=== PATIENT | female | born 2000 | race American Indian/Alaskan Native ===

== ENCOUNTER 2021-03-13 22:30 | Emergency (ER) | payer SELFPAY ==
[2021-03-14 00:09] VITALS: BP 122/64
[2021-03-14 01:45] LABS: Basophils % (Auto) 0.4 % (0.0-1.8); Eosinophils % (Auto) 0.3 % (0.0-4.3); Hematocrit 39.1 % (30.3-42.9); Hemoglobin 13.3 gm/dl (10.1-14.3); Lymphocytes % (Auto) 15.2 % (13.4-35.0); Mean Corpuscular HGB Conc 34 % (30-34); Mean Corpuscular Volume 91 fl (79-97); Monocytes # (Auto) 0.6 K/mm3 (0.0-0.8); Monocytes % (Auto) 9.3 % (0.0-7.3); Platelet Count 233 K/mm3 (140-440); Red Blood Count 4.28 M/mm3 (3.65-5.03); Red Cell Distribution Width 13.6 % (13.2-15.2)
[2021-03-14 02:06] LABS: Blood Urea Nitrogen 9 mg/dL (7-17); Calcium 8.5 mg/dL (8.4-10.2); Hemolysis Index 1
[2021-03-14 02:17] LABS: BUN/Creatinine Ratio 18
--- NOTE | 2021-03-14 03:48 | Emergency Department Report ---
- General Chief Complaint: Abdominal Pain Stated Complaint: 6WEEKS PREG,FEVER Time Seen by Provider: 03/14/21 00:30 Source: patient Mode of arrival: Ambulatory Limitations: No Limitations - History of Present Illness Initial Comments: 20-year-old female [facility] emerge department complaining of cough congestion coryza muscle aches for the last 3 days with a sudden onset from unknown etiology. She also reports continued pelvic cramping which has been present since discovering her prior to a more weeks ago. She is follow-up with [facility] in regards to the cramping for the cramping was normal not to worry unless there was anything any bleeding involved she denies any current spotting or vaginal bleeding. MD Complaint: fever, cough, rhinorrhea -: Sudden Severity: mild Consistency: constant Worsens With: nothing Associated Symptoms: chills, myalgias, rhinorrhea, nasal congestion, cough Treatments Prior to Arrival: none - Related Data Allergies Allergy/AdvReac Type Severity Reaction Status Date / Time No Known Allergies Allergy Unverified 03/13/21 23:51 ED Review of Systems ROS: Stated complaint: 6WEEKS PREG,FEVER Other details as noted in HPI Comment: All other systems reviewed and negative ED Past Medical Hx - Past Medical History Previous Medical History?: No - Surgical History Past Surgical History?: No - Social History Smoking Status: Never Smoker Substance Use Type: None ED Physical Exam - General Limitations: No Limitations General appearance: alert, in no apparent distress - Head Head exam: Present: atraumatic, normocephalic - Eye Eye exam: Present: normal appearance, PERRL, EOMI - ENT ENT exam: Present: mucous membranes moist, other (Mild congestion the pharynx is clear airway patent tongue uvula midline no lymphadenopathy) - Neck Neck exam: Present: normal inspection - Respiratory Respiratory exam: Present: normal lung sounds bilaterally. Absent: respiratory distress, wheezes, rales, rhonchi, stridor - Cardiovascular Cardiovascular Exam: Present: regular rate, normal rhythm. Absent: systolic murmur, diastolic murmur, rubs, gallop - GI/Abdominal GI/Abdominal exam: Present: soft, normal bowel sounds - Extremities Exam Extremities exam: Present: normal inspection - Back Exam Back exam: Present: normal inspection. Absent: CVA tenderness (R), CVA tenderness (L) - Neurological Exam Neurological exam: Present: alert, oriented X3, CN II-XII intact, normal gait - Psychiatric Psychiatric exam: Present: normal affect, normal mood - Skin Skin exam: Present: warm, dry, intact, normal color. Absent: rash ED Course Vital Signs 03/13/21 23:45 Temperature 97.9 F Respiratory 18 Rate Blood Pressure 122/64 ED Medical Decision Making - Lab Data Result diagrams: 03/14/21 01:24 03/14/21 01:24 - Medical Decision Making This 20-year-old patient presents with symptoms suspicious for likely viral upper respiratory tract infection. Differential includes bacterial pneumonia, sinusitis, allergic rhinitis, COVID-19, influenza. Do not suspect underlying C ardiopulmonary process. I considered but think unlikely dangerous cause of this patient symptoms to include acute coronary syndrome, CHF or COPD exacerbations, pneumonia, pneumothorax. Patient is nontoxic appearing and not in need of emergent medical intervention. Plan: Reassurance, reassessment, [id number] medications, discharge with PCP follow-up Critical care attestation.: If time is entered above; I have spent that time in minutes in the direct care of this critically ill patient, excluding procedure time. ED Disposition Clinical Impression: URI (upper respiratory infection), Myalgia Disposition: DC-01 TO HOME OR SELFCARE Is pt being admited?: No Does the pt Need Aspirin: No Condition: Stable Instructions: Abdominal Pain (ED), Cough, Adult, [id number], Upper Respiratory Infection, Adult, [id number], Cool Mist Vaporizer, Upper Respiratory Infection, Adult Additional Instructions: Your evaluated emergency department today for congestion cough coryza. Suggestions suggest that your symptoms are most likely due to a viral illness which will improve on its own with rest and fluids. Due to is recommended that she take Tylenol as needed for any fevers or or discomfort as scheduled on the bottle and looks [facility] when starting this medication regimen. \ Please be sure to schedule appointment for follow-up with your primary care/[facility] this week Return to emergency department if you expands worsening cough, fever greater than 100.4 does not controlled with Tylenol, chest pain, shortness of breath, vaginal bleeding or any other concerning symptoms For your quant is over 25,000 Referrals: PRIMARY CARE, [Primary Care Provider] - 3-5 Days
== END 2021-03-14 04:00 | disposition home or self-care (01) ==
LOC: ED 22:30
DX: O99.511 Diseases of the respiratory system complicating pregnancy, first trimester (principal); M79.10 Myalgia, unspecified site; J06.9 Acute upper respiratory infection, unspecified; Z3A.01 Less than 8 weeks gestation of pregnancy
CPT/HCPCS: 36415; 80048; 84702; 85025